=== PATIENT | male | born 1965 | race Caucasian/White ===

== ENCOUNTER 2019-05-02 06:13 | Day surgery (SDC) | payer OTHER ==
--- NOTE | 2019-04-29 10:46 | RAD REPORT ---
EXAM DESCRIPTION: RAD - Chest Pa And Lat (2 Views) - 04/29/2019 10:38 am CLINICAL HISTORY: preop Chest pain. COMPARISON: CHEST SINGLE VIEW dated 06/24/2015 FINDINGS: Emphysematous changes are present throughout the lungs. There is ill-defined apical pleura l thickening bilaterally. The heart is normal in size. No displaced fractures. IMPRESSION: COPD with apical pleural thickening bilaterally.
[2019-04-29 11:29] LABS: Absolute Lymphocytes (CBC) 2.8 K/uL (0.7-4.9); Basophils % 0.9 % (0-1.3); Eosinophils % 3.7 % (0-4.4); Hematocrit 44.5 % (39.6-49.0); Lymphocytes % 33.3 % (15.3-44.8); MPV 7.9 fL (7.6-11.3); Monocytes % 5.5 % (3.3-12.3); RBC Red Blood Cell Count 4.64 M/uL (4.33-5.43)
[2019-04-29 11:52] LABS: ALT/SGPT 27 U/L (12-78); AST/SGOT 23 U/L (15-37); Albumin 3.9 g/dL (3.4-5.0); Alkaline Phosphatase 71 U/L (45-117); Amylase Level 47 U/L (25-115); Bilirubin Direct < 0.1 mg/dL (0-0.2); Bilirubin Total 0.4 mg/dL (0.2-1.0)
[2019-04-29 12:04] LABS: Potassium 4.6 mmol/L (3.5-5.1)
--- NOTE | 2019-04-29 12:10 | EKG ---
Test Date: 2019-04-29 Test Time: 10:25:56 Oceanography Professor: PREO MEASUREMENT RESULTS: Intervals: Rate: 72 ME: 134 QRSD: 96 QT: 382 QTc: 418 [place]: P: 54 ME: 134 QRS: 62 T: 59 INTERPRETIVE STATEMENTS: Normal sinus rhythm Nonspecific ST abnormality Abnormal ECG Compared to ECG 06/24/2015 09:52:24 No significant changes Electronically Signed On 04-29-19 12:10:06 CDT by Niraj Amaral
--- OUTSIDE RECORDS SUMMARY | 2019-05-02 06:16 | XMS REPORT | Summary of Care ---
:1965 [address] [facility] Address [address] [address]- Encounter HQ Lydia(FIN) [id number] Date(s): 06/13/18 - 06/13/[address] [facility] [address] [facility] [address] [place], [place] [address]- [phone] Discharge Disposition: Home or Self Care Attending Physician: Marisol Shaikh MD Vital Signs Most recent to oldest [Reference Range]: 1 Height 175.26 cm (06/13/18 4:00 PM) Blood Pressure [90-140/60-90 mmHg] 126/77 mmHg (06/13/18 4:00 PM) Peripheral Pulse Rate [60-100 bpm] 82 bpm (06/13/18 4:00 PM) Weight 72.443 kg (06/13/18 4:00 PM) Body Mass Index 23.58 m2 (06/13/18 4:00 PM) Problem List Condition Effective Dates Status Health Status Informant Atypical facial pain(Confirmed) Active Medication monitoring Resolved encounter(Confirmed) Chronic GERD(Confirmed) Active Headache(Confirmed)1 01/07/07 Resolved Hypercholesteremia(Confirmed) Active Chronic prescription opiate Active use(Confirmed) Rosacea2 06/07/12 Active 1Data migrated from [employer] on 04/13/15.2Data migrated from [employer] on 04/13/15. Allergies, Adverse Reactions, Alerts Substance Reaction Severity Status sulfa drugs1 Active divalproex sodium2 Active 1Data migrated from [employer] on 06/10/15. Originally documented as SULFA. severe [id number] migrated from [employer] on 03/11/15. Originally documented as DEPAKOTE. made his nerve head pain become sharper Medications acetaminophen-hydrocodone 325 mg-10 mg oral tablet 1/2-1 tab, PO, Q8H, PRN Pain, # 45 tab, 0 Refill(s) Start Date: 06/13/18 Stop Date: 07/23/18 Status: Completed Results No data available for this section Immunizations No data available for this section Procedures Procedure Date Related Diagnosis Body Site Status Nerve operation1 10/28/07 Completed 1Decompression of trigeminal branches Social History Social History Type Response Employment/School Status: Employed. 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 Other: , is ill with chronic lung disease, has a trach. Two Children, 29 y.o dtr and her 3 kids live with pt and his , Son 34 lives close by. 2 kids.. Smoking Status Current every day smoker; Ready to change: No; Concerns about tobacco use in household: No; Exposure to Tobacco Smoke self; Cigarette Smoking Last 365 Days Yes; Reg Smoking Cessation Counseling Yes entered on: 10/24/18 Assessment and Plan No data available for this section
--- OUTSIDE RECORDS SUMMARY | 2019-05-02 06:16 | XMS REPORT | Continuity of Care Document ---
:1965 Author Organization Interface Problems Problem Status Onset Classification Date Comments Source Date Reported Rosacea<sup>2</sup> Active Problem 04/09/2019 Data 012 migrated Medical from [employer] on 04/13/15. Headache<sup>1</sup> Resolved Problem 04/09/2019 Data 007 migrated Medical from [employer] on 04/13/15. Atypical facial pain Active Problem 04/09/2019 Medical Group Medication monitoring Resolved Problem 04/09/2019 encounter Medical Group Chronic prescription Active Problem 04/09/2019 opiate use Medical Group Chronic GERD Active Problem 04/09/2019 Medical Group Hypercholesteremia Active Problem 04/09/2019 Medical Group Medications Medication Details Route Status Patient Ordering Order Source Instructions Provider Date Acetaminophen 325 MG 1/2-1 tab, Active / Hydrocodone PO, Q8H, 019 Medical Bitartrate 10 MG PRN Pain, # Group Oral Tablet 45 tab, 0 Refill(s) Acetaminophen 325 MG 1/2-1 tab, Active / Hydrocodone PO, Q8H, 019 Medical Bitartrate 10 MG PRN Pain, # Group Oral Tablet 45 tab, 0 Refill(s), other amitriptyline 50 mg =1 tab, PO, Active oral tablet Bedtime, # 019 Medical 30 tab, Group Refill(s) 1, Pharmacy: [facility] [id number] Acetaminophen 325 MG 1/2-1 tab, Active / Hydrocodone PO, Q8H, 019 Medical Bitartrate 10 MG PRN Pain, # Group Oral Tablet 45 tab, 0 Refill(s) Acetaminophen 300 MG 1 tab, PO, Active / Codeine Phosphate Q6H, PRN 019 Medical 60 MG Oral Tablet pain, # 45 Group [Tylenol with tab, 0 Codeine #4] Refill(s) Acetaminophen 325 MG 1/2-1 tab, No MH / Hydrocodone PO, Q8H, Longer 018 Medical Bitartrate 10 MG PRN Pain, # Active Group Oral Tablet 45 tab, 0 Refill(s), other Acetaminophen 325 MG 1/2-1 tab, No MH / Hydrocodone PO, Q8H, Longer 018 Medical Bitartrate 10 MG PRN Pain, # Active Group Oral Tablet 45 tab, 0 Refill(s), other Acetaminophen 325 MG 1/2-1 tab, No MH / Hydrocodone PO, Q8H, Longer 018 Medical Bitartrate 10 MG PRN Pain, # Active Group Oral Tablet 45 tab, 0 Refill(s), other amitriptyline 50 mg See No oral tablet Instruction Longer 018 Medical s, # 30 Active Group tab, Refill(s) 3, TAKE 1 TABLET BY MOUTH EVERY NIGHT AT BEDTIME, Pharmacy: [facility] [id number] Acetaminophen 325 MG 1/2-1 tab, No MH / Hydrocodone PO, Q8H, Longer 018 Medical Bitartrate 10 MG PRN Pain, # Active Group Oral Tablet 45 tab, 0 Refill(s) Acetaminophen 325 MG 1/2-1 tab, Active MH / Hydrocodone PO, Q8H, 018 Medical Bitartrate 10 MG PRN Pain, # Group Oral Tablet 45 tab, 0 Refill(s), other Acetaminophen 325 MG 1/2-1 tab, Active MH / Hydrocodone PO, Q8H, 018 Medical Bitartrate 10 MG PRN Pain, # Group Oral Tablet 45 tab, 0 Refill(s), other MethylPREDNISolone See Active Dose Pack 4 mg oral Instruction 018 Medical tablet s, PO, Group Daily, Use as directed on label., # 1 Pack, 0 Refill(s), Pharmacy: [facility] [id number] amitriptyline 50 mg See Active oral tablet Instruction 018 Medical s, # 30 Group tab, Refill(s) 5, TAKE 1 TABLET BY MOUTH EVERY NIGHT AT BEDTIME, Pharmacy: [facility] [id number] Acetaminophen 325 MG 1/2-1 tab, No MH / Hydrocodone PO, Q8H, Longer 018 Medical Bitartrate 10 MG PRN Pain, # Active Group Oral Tablet 45 tab, 0 Refill(s), other Acetaminophen 325 MG 1/2-1 tab, No MH / Hydrocodone PO, Q8H, Longer 018 Medical Bitartrate 10 MG PRN Pain, # Active Group Oral Tablet 45 tab, 0 Refill(s), other Acetaminophen 325 MG 1/2-1 tab, No MH / Hydrocodone PO, Q8H, Longer 018 Medical Bitartrate 10 MG PRN Pain, # Active Group Oral Tablet 45 tab, 0 Refill(s), given to patient Allergies, Adverse Reactions, Alerts Substance Category Reaction Severity Reaction Status Date Comments Source type Reported sulfa Assertion Drug Active Data drugs<sup>1< allergy 7 migrated Medical /sup> from [employer] on 06/10/15. Originally documented as SULFA. severe headaches divalproex Assertion Drug Active Data sodium<sup>2 allergy 7 migrated Medical </sup> from [employer] on 03/11/15. Originally documented as DEPAKOTE. made his nerve head pain become sharper Immunizations Immunization Date Given Site Status Last Updated Comments Source Results Order Results Value Reference Date Interpretation Comments Source Name Range Vital Signs Vital Sign Value Date Comments Source Weight 73.409 04/01/2019 Medical Group BMI Calculated 23.9 04/01/2019 Medical Group Height 175.26 cm 04/01/2019 Medical Group Heart Rate 90 04/01/2019 Medical Group Systolic (mm Hg) 122 04/01/2019 Medical Group Diastolic (mm Hg) 79 04/01/2019 Medical Group Height 175.26 cm 06/13/2018 Medical Group BMI Calculated 23.58 06/13/2018 Medical Group Weight 72.443 06/13/2018 Medical Group Systolic (mm Hg) 126 06/13/2018 Medical Group Diastolic (mm Hg) 77 06/13/2018 Medical Group Heart Rate 82 06/13/2018 Medical Group BMI Calculated 23.27 02/14/2018 Medical Group Weight 71.477 02/14/2018 Medical Group Height 175.26 cm 02/14/2018 Medical Group Heart Rate 84 02/14/2018 Medical Group Systolic (mm Hg) 136 02/14/2018 Medical Group Diastolic (mm Hg) 82 02/14/2018 Medical Group Weight 72.386 10/18/2017 Medical Group BMI Calculated 23.57 10/18/2017 Medical Group Height 175.26 cm 10/18/2017 Medical Group Systolic (mm Hg) 131 10/18/2017 Medical Group Diastolic (mm Hg) 73 10/18/2017 Medical Group Heart Rate 89 10/18/2017 Medical Group Encounters Location Location Encounter Encounter Reason Attending ADM DC Status Source Details Type Number For Provider Date Date Visit Outpatient [id number] [facility]YSIA 06/14 [facility] [place] [facility] [id number] MARISOL 10/27 [facility] [place] [facility] [id number] DIONYSIA 02/23 [facility] [place] [facility] [id number] DIONYSIA 04/05 [facility] [place] [facility] [id number] MARISOL 05/25 [facility] [place] [facility] [id number] NURSE 07/07 [facility] [place] Out[facility] [id number] DIONYSIA 09/28 [facility] [place] [facility] [id number] MARISOL 02/12 [facility] [place] [facility] [id number] MARISOL 06/14 [facility] [id number] MARISOL 10/18 [facility]2016 [facility] Outpatient [id number] Marisol 10/18 10/19 Neurology Neel /2016 [facility] Phone [id number] 11/19 11/21 [facility] [id number] 12/19 12/21 [facility] [id number] 01/17 01/19 [facility] [id number] 01/21 01/23 Neurology Message /2017 [facility] of [facility] Outpatient [id number] MARISOL 02/14 [facility] Outpatient [id number] Marisol 02/14 02/15 MH Neurology Neel /2017 [facility] Phone [id number] 03/19 03/21 MH Neurology Message /2017 [facility] Phone [id number] 04/18 04/20 MH Neurology Message /2017 [facility] Phone [id number] 05/16 05/18 MH Neurology Message /2017 [facility] Outpatient [id number] MARISOL 06/13 Active [facility]2017 [place] [facility] Outpatient [id number] Marisol 06/13 06/14 MH Neurology Neel /2017 [facility] Phone [id number] 07/22 07/24 MH Neurology Message /2017 [facility] Phone [id number] 07/23 07/25 MH Neurology Message /2017 [facility] Phone [id number] 08/15 08/17 Neurology Message /2017 [facility] Phone [id number] 09/18 09/20 MH Neurology Message /2017 [facility] Outpatient [id number] MARISOL 10/24 Active [facility] [place] [facility] Phone [id number] 12/19 12/21 MH Neurology Message /2018 [facility] Phone [id number] 01/06 01/08 MH Neurology Message /2018 [facility] Phone [id number] 01/13 01/15 MH Neurology Message /2018 [facility] Phone [id number] 01/13 01/15 MH Neurology Message /2018 [facility] Phone [id number] 01/20 01/22 MH Neurology Message /2018 [facility] Phone [id number] 01/20 01/22 Neurology Message /2018 [facility] Outpatient [id number] MARISOL 02/13 Active [facility] [place] [facility] Ambulatory [id number] Marisol 02/13 04 MH Neurology Pre-Reg Neel /2018 [facility] Phone [id number] 02/14 02/16 Neurology Message /2018 [facility] Phone [id number] 03/17 03/19 Neurology Message /2018 [facility] Phone [id number] 03/19 03/21 Neurology Message /2018 [facility] Outpatient [id number] Marisol 04/01 Active [facility] Outpatient [id number] Marisol 04/01 04/02 Neurology Neel /2018 [facility] Outpatient [id number] Marisol 08/07 Active [facility] [place] Procedures Procedure Code Date Perfomer Comments Source Nerve [id number] 10/28/2007 Decompression of Medical operation<sup>1 trigeminal branches Group </sup>
--- OUTSIDE RECORDS SUMMARY | 2019-05-02 06:17 | XMS REPORT | Summary of Care ---
:1965 Author Organization [facility] Neurology [facility] Address [address] [facility] [place] [address]- Encounter HQ Encntr_alias(FIN) [id number] Date(s): 09/18/18 - 09/19/18 [facility] [address] [place] [address]. [address] [place] [address]- [phone] Vital Signs No data available for this section Problem List Condition Effective Dates Status Health [...] on 06/10/15. Originally documented as SULFA. severe [id number] migrated from [employer] on 03/11/15. Originally documented as DEPAKOTE. made his nerve head pain become sharper Medications acetaminophen-hydrocodone 325 mg-10 mg oral tablet 1/2-1 tab, PO, Q8H, PRN Pain, # 45 tab, 0 Refill(s), other Start Date: 09/19/18 Stop Date: 10/24/18 Status: Discontinued Results No data available for this section Immunizations No data available for this section Procedures Procedure Date Related Diagnosis Body Site Status Nerve operation1 10/28/07 Completed 1Decompression of trigeminal branches Social History Social History Type Response Employment/School Status: Employed. 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 Other: , is ill with [...] Reg Smoking Cessation Counseling Yes entered on: 04/01/19 Assessment and Plan No data available for this section
--- OUTSIDE RECORDS SUMMARY | 2019-05-02 06:17 | XMS REPORT | Summary of Care ---
:1965 Author Organization [facility] Address [address] [address]- Encounter HQ Encntr_alias(FIN) [id number] Date(s): 01/06/19 - 01/07/19 [facility] [address] [facility] [address] [place], [place] [address]- [phone] Vital Signs No data available for this [...] on 06/10/15. Originally documented as SULFA. severe [id number] migrated from [employer] on 03/11/15. Originally documented as DEPAKOTE. made his nerve head pain become sharper Medications No data available for this section Results No data available for this section Immunizations No data available for this section Procedures Procedure Date Related Diagnosis Body Site Status Nerve operation1 10/28/07 Completed 1Decompression of trigeminal branches Social History Social History Type Response Employment/School Status: Employed. 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 Other: , is ill with [...]
--- OUTSIDE RECORDS SUMMARY | 2019-05-02 06:17 | XMS REPORT | Summary of Care ---
:1965 Author Organization [facility] Neurology [facility] Address [address] [facility] [place] [address]- Encounter HQ Encntr_alias(FIN) [id number] Date(s): 02/14/19 - 02/15/19 [facility] [address] [place] [address]. [address] [place] [address]- [phone] Vital Signs No data available for this [...] on 06/10/15. Originally documented as SULFA. severe [id number] migrated from [employer] on 03/11/15. 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 Other: , is ill with [...]
--- OUTSIDE RECORDS SUMMARY | 2019-05-02 06:17 | XMS REPORT | Summary of Care ---
:1965 Author Organization [facility] Neurology [facility] Address [address] [facility] [place] [address]- Encounter HQ Encntr_alihoney(FIN) [id number] Date(s): 02/13/19 - 02/13/19 [facility] [address] [place] [address]. [address] [place] [address]- [phone] Attending Physician: Marisol Shaikh MD Vital Signs No data available for this [...] on 06/10/15. Originally documented as SULFA. severe [id number] migrated from [employer] on 03/11/15. 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 Other: , is ill with [...]
--- OUTSIDE RECORDS SUMMARY | 2019-05-02 06:17 | XMS REPORT | Summary of Care ---
:1965 Author Organization [facility] Address [address] [address]- Encounter HQ Encntr_alias(FIN) [id number] Date(s): 03/19/18 - 03/20/18 [facility] [address] [address]- [phone] Vital Signs No data available for this section Problem List Condition Effective Dates Status Health Status Informant Atypical facial pain(Confirmed) Active Medication monitoring Resolved encounter(Confirmed) Headache(Confirmed)1 01/07/07 Resolved Chronic prescription opiate Active use(Confirmed) Rosacea2 06/07/12 Active 1Data migrated from [employer] on 04/13/15.2Data migrated from [employer] on 04/13/15. Allergies, Adverse Reactions, Alerts Substance Reaction Severity Status sulfa drugs1 Active divalproex sodium2 Active 1Data migrated from [employer] on 06/10/15. Originally documented as SULFA. severe [id number] migrated from [employer] on 03/11/15. Originally documented as DEPAKOTE. made his nerve head pain become sharper Medications acetaminophen-hydrocodone 325 mg-10 mg oral tablet 1/2-1 tab, PO, Q8H, PRN Pain, # 45 tab, 0 Refill(s), other Start Date: 03/21/18 Status: Ordered Results No data available for this section Immunizations No data available for this section Procedures Procedure Date Related Diagnosis Body Site Status Nerve operation1 10/28/07 Completed 1Decompression of trigeminal branches Social History Social History Type Response Employment/School Status: Employed. 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 Other: , is ill with chronic lung disease, has a trach. 2 Children, 26 y.o dtr and her 3 kids live with pt and his . Son lives close by. 2 kids.. Smoking Status Current every day smoker; Ready to change: No; Concerns about tobacco use in household: No; Exposure to Tobacco Smoke self; Cigarette Smoking Last 365 Days Yes; Reg Smoking Cessation Counseling Yes entered on: 02/14/18 Assessment and Plan No data available for this section
--- OUTSIDE RECORDS SUMMARY | 2019-05-02 06:17 | XMS REPORT | Summary of Care ---
:1965 Author Organization [facility] Neurology [facility] Address [address] [facility] [place] [address]- Encounter HQ Encntr_alias(FIN) [id number] Date(s): 07/22/18 - 07/23/18 [facility] [address] [place] [address]. [address] [place] [address]- [phone] Vital Signs No data available for this [...] on 06/10/15. Originally documented as SULFA. severe [id number] migrated from [employer] on 03/11/15. Originally documented as DEPAKOTE. made his nerve head pain become sharper Medications amitriptyline 50 mg oral tablet See Instructions, # 30 tab, Refill(s) 3, TAKE 1 TABLET BY MOUTH EVERY NIGHT AT BEDTIME, Pharmacy: [email or web address] [id number] Start Date: 07/22/18 Stop Date: 10/24/18 Status: Discontinued Results No data available for this section Immunizations No data available for this section Procedures Procedure Date Related Diagnosis Body Site Status Nerve operation1 10/28/07 Completed 1Decompression of trigeminal branches Social History Social History Type Response Employment/School Status: Employed. 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 Other: , is ill with [...]
--- OUTSIDE RECORDS SUMMARY | 2019-05-02 06:17 | XMS REPORT | Summary of Care ---
:1965 Author Organization [facility] Neurology [facility] Address [address] [facility] [place] [address]- Encounter HQ Encntr_alias(FIN) [id number] Date(s): 07/23/18 - 07/24/18 [facility] [address] [place] [address]. [address] [place] [address]- [phone] Vital Signs No data available for this [...] on 06/10/15. Originally documented as SULFA. severe [id number] migrated from [employer] on 03/11/15. Originally documented as DEPAKOTE. made his nerve head pain become sharper Medications acetaminophen-hydrocodone 325 mg-10 mg oral tablet 1/2-1 tab, PO, Q8H, PRN Pain, # 45 tab, 0 Refill(s), other Start Date: 07/23/18 Stop Date: 08/16/18 Status: Completed Results No data available for this section Immunizations No data available for this section Procedures Procedure Date Related Diagnosis Body Site Status Nerve operation1 10/28/07 Completed 1Decompression of trigeminal branches Social History Social History Type Response Employment/School Status: Employed. 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 Other: , is ill with [...]
--- OUTSIDE RECORDS SUMMARY | 2019-05-02 06:17 | XMS REPORT | Summary of Care ---
:1965 Author Organization [facility] Address [address] [address]- Encounter HQ Encntr_alias(FIN) [id number] Date(s): 11/19/17 - 11/20/17 [facility] [address] [facility] [address] [place], [place] [address]- [phone] Vital Signs No data available for this [...] on 06/10/15. Originally documented as SULFA. severe [id number] migrated from [employer] on 03/11/15. Originally documented as DEPAKOTE. made his nerve head pain become sharper Medications acetaminophen-hydrocodone 325 mg-10 mg oral tablet 1/2-1 tab, PO, Q8H, PRN Pain, # 45 tab, 0 Refill(s), given to patient Start Date: 11/22/17 Status: Ordered Results No data available for this section Immunizations No data available for this section Procedures Procedure Date Related Diagnosis Body Site Status Nerve operation1 10/28/07 Completed 1Decompression of trigeminal branches Social History Social History Type Response Employment/School Status: Employed. 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 Other: , is ill with chronic lung disease, has a trach. 2 Children, 26 y.o dtr and her 2 kids live with pt and his . Son lie close by. 4 grandchildren, all boys.. Smoking Status Current every day smoker; Ready to change: No; Concerns about tobacco use in household: No; Exposure to Tobacco Smoke self; Cigarette Smoking Last 365 Days Yes; Reg Smoking Cessation Counseling Yes entered on: 10/18/17 Assessment and Plan No data available for this section
--- OUTSIDE RECORDS SUMMARY | 2019-05-02 06:17 | XMS REPORT | Summary of Care ---
:1965 Author Organization [facility] Address [address] [address]- Encounter HQ Yvonne_halle(FIN) [id number] Date(s): 10/18/17 - 10/18/17 [facility] [address] [id number]- [phone] Discharge Disposition: Home or Self Care Attending Physician: Marisol Shaikh MD Vital Signs Most recent to oldest [Reference Range]: 1 Height 175.26 cm (10/18/17 4:18 PM) Blood Pressure [90-140/60-90 mmHg] 131/73 mmHg (10/18/17 4:18 PM) Peripheral Pulse Rate [60-100 bpm] 89 bpm (10/18/17 4:18 PM) Weight 72.386 kg (10/18/17 4:18 PM) Body Mass Index 23.57 m2 (10/18/17 4:18 PM) Problem List Condition Effective Dates Status [...] on 06/10/15. Originally documented as SULFA. severe [id number] migrated from [employer] on 03/11/15. Originally documented as DEPAKOTE. made his nerve head pain become sharper Medications No Known Medications Results No data available for this section Immunizations No data available for this section Procedures Procedure Date Related Diagnosis Body Site Nerve operation1 10/28/07 1Decompression of trigeminal branches Social History Social History Type Response Employment/School Status: Employed. 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
--- OUTSIDE RECORDS SUMMARY | 2019-05-02 06:17 | XMS REPORT | Summary of Care ---
:1965 Author Organization [facility] Neurology [facility] Address [address] [facility] [place] [address]- Encounter HQ Encntr_alias(FIN) [id number] Date(s): 03/17/19 - 03/18/19 [facility] [address] [place] [address]. [address] [place] [address]- [phone] Vital Signs No data available for this [...] on 06/10/15. Originally documented as SULFA. severe [id number] migrated from [employer] on 03/11/15. Originally documented as DEPAKOTE. made his nerve head pain become sharper Medications amitriptyline 50 mg oral tablet =1 tab, PO, Bedtime, # 30 tab, Refill(s) 1, Pharmacy: [facility] [id number] Start Date: 03/17/19 Status: Ordered Results No data available for this section Immunizations No data available for this section Procedures Procedure Date Related Diagnosis Body Site Status Nerve operation1 10/28/07 Completed 1Decompression of trigeminal branches Social History Social History Type Response Employment/School Status: Employed. 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 Other: , is ill with [...]
--- OUTSIDE RECORDS SUMMARY | 2019-05-02 06:17 | XMS REPORT | Summary of Care ---
:1965 Author Organization [facility] Address [address] [address]- Encounter HQ Encntr_alias(FIN) [id number] Date(s): 11/19/17 - 11/20/17 [facility] [address] [facility] [address] [place], [place] [address]- [phone] Vital Signs No data available for this [...] on 06/10/15. Originally documented as SULFA. severe [id number] migrated from [employer] on 03/11/15. Originally documented as DEPAKOTE. made his nerve head pain become sharper Medications acetaminophen-hydrocodone 325 mg-10 mg oral tablet 1/2-1 tab, PO, Q8H, PRN Pain, # 45 tab, 0 Refill(s), given to patient Start Date: 11/22/17 Stop Date: 12/20/17 Status: Completed Results No data available for this section Immunizations No data available for this section Procedures Procedure Date Related Diagnosis Body Site Status Nerve operation1 10/28/07 Completed 1Decompression of trigeminal branches Social History Social History Type Response Employment/School Status: Employed. 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 Other: , is ill with [...]
--- OUTSIDE RECORDS SUMMARY | 2019-05-02 06:17 | XMS REPORT | Summary of Care ---
:1965 Author Organization [facility] Address [address] [address]- Encounter HQ Encntr_alias(FIN) [id number] Date(s): 03/19/18 - 03/20/18 [facility] [address] [address]- [phone] Vital Signs No data available for this [...] on 06/10/15. Originally documented as SULFA. severe [id number] migrated from [employer] on 03/11/15. 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 Other: , is ill with [...]
--- OUTSIDE RECORDS SUMMARY | 2019-05-02 06:17 | XMS REPORT | Summary of Care ---
:1965 Author Organization [facility] Address [address] [address]- Encounter HQ Encntr_alias(FIN) [id number] Date(s): 01/13/19 - 01/14/19 [facility] [address] [facility] [address] [place], [place] [address]- [phone] Vital Signs No data available for this [...] on 06/10/15. Originally documented as SULFA. severe [id number] migrated from [employer] on 03/11/15. 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 Other: , is ill with [...]
--- OUTSIDE RECORDS SUMMARY | 2019-05-02 06:18 | XMS REPORT | Summary of Care ---
:1965 Author Organization [facility] Address [address] [address]- Encounter HQ Lydia(FIN) [id number] Date(s): 02/14/18 - 02/14/18 [facility] [address] [facility] [address] [place], [place] [address]- [phone] Discharge Disposition: Home or Self Care Attending Physician: Marisol Shaikh MD Vital Signs Most recent to oldest [Reference Range]: 1 Height 175.26 cm (02/14/18 3:41 PM) Blood Pressure [90-140/60-90 mmHg] 136/82 mmHg (02/14/18 3:41 PM) Peripheral Pulse Rate [60-100 bpm] 84 bpm (02/14/18 3:41 PM) Weight 71.477 kg (02/14/18 3:41 PM) Body Mass Index 23.27 m2 (02/14/18 3:41 PM) Problem List Condition Effective Dates Status Health Status Informant Atypical facial pain(Confirmed) Active Medication monitoring Resolved encounter(Confirmed) Headache(Confirmed)1 01/07/07 Resolved Chronic prescription opiate Active use(Confirmed) Rosacea2 06/07/12 Active 1Data migrated from [employer] on 04/13/15.2Data migrated from [employer] on 04/13/15. Allergies, Adverse Reactions, Alerts Substance Reaction Severity Status sulfa drugs1 Active divalproex sodium2 Active 1Data migrated from [employer] on 06/10/15. Originally documented as SULFA. severe [id number] migrated from [employer] on 03/11/15. Originally documented as DEPAKOTE. made his nerve head pain become sharper Medications MethylPREDNISolone Dose Pack 4 mg oral tablet See Instructions, PO, Daily, Use as directed on label., # 1 Pack, 0 Refill(s), Pharmacy: [email or web address] [id number] Start Date: 02/14/18 Stop Date: 02/20/18 Status: Ordered Results No data available for this section Immunizations No data available for this section Procedures Procedure Date Related Diagnosis Body Site Status Nerve operation1 10/28/07 Completed 1Decompression of trigeminal branches Social History Social History Type Response Employment/School Status: Employed. 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 Other: , is ill with [...]
--- OUTSIDE RECORDS SUMMARY | 2019-05-02 06:18 | XMS REPORT | Summary of Care ---
:1965 Author Organization [facility] Address [address] [address]- Encounter HQ Encntr_alias(FIN) [id number] Date(s): 01/17/18 - 01/18/18 [facility] [address] [facility] [address] [place], [place] [address]- [phone] Vital Signs No data available for this [...] on 06/10/15. Originally documented as SULFA. severe [id number] migrated from [employer] on 03/11/15. Originally documented as DEPAKOTE. made his nerve head pain become sharper Medications acetaminophen-hydrocodone 325 mg-10 mg oral tablet 1/2-1 tab, PO, Q8H, PRN Pain, # 45 tab, 0 Refill(s), other Start Date: 01/21/18 Stop Date: 03/21/18 Status: Completed Results No data available for this section Immunizations No data available for this section Procedures Procedure Date Related Diagnosis Body Site Status Nerve operation1 10/28/07 Completed 1Decompression of trigeminal branches Social History Social History Type Response Employment/School Status: Employed. 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 Other: , is ill with [...]
--- OUTSIDE RECORDS SUMMARY | 2019-05-02 06:18 | XMS REPORT | Summary of Care ---
:1965 Author Organization [facility] Address [address] [address]- Encounter HQ Encntr_alias(FIN) [id number] Date(s): 01/20/19 - 01/21/19 [facility] [address] [facility] [address] [place], [place] [address]- [phone] Vital Signs No data available for this [...] on 06/10/15. Originally documented as SULFA. severe [id number] migrated from [employer] on 03/11/15. 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 has been with the same [employer] since 2004.. Other: , is ill with [...]
--- OUTSIDE RECORDS SUMMARY | 2019-05-02 06:18 | XMS REPORT | Summary of Care ---
:1965 Author Organization [facility] Address [address] [facility] [address] [place] [address]- Encounter HQ Lydia(FIN) [id number] Date(s): 04/01/19 - 04/01/19 [facility] [address] [facility]. [address] [place] [address]- [phone] Discharge Disposition: Home or Self Care Attending Physician: Marisol Shaikh MD Vital Signs Most recent to oldest [Reference Range]: 1 Height 175.26 cm (04/01/19 3:45 PM) Blood Pressure [90-140/60-90 mmHg] 122/79 mmHg (04/01/19 3:45 PM) Peripheral Pulse Rate [60-100 bpm] 90 bpm (04/01/19 3:45 PM) Weight 73.409 kg (04/01/19 3:45 PM) Body Mass Index 23.9 m2 (04/01/19 3:45 PM) Problem List Condition Effective Dates Status [...] on 06/10/15. Originally documented as SULFA. severe [id number] migrated from [employer] on 03/11/15. Originally documented as DEPAKOTE. made his nerve head pain become sharper Medications acetaminophen-hydrocodone 325 mg-10 mg oral tablet 1/2-1 tab, PO, Q8H, PRN Pain, # 45 tab, 0 Refill(s) Start Date: 04/01/19 Status: Ordered Results No data available for this section Immunizations No data available for this section Procedures Procedure Date Related Diagnosis Body Site Status Nerve operation1 10/28/07 Completed 1Decompression of trigeminal branches Social History Social History Type Response Employment/School Status: Employed. 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 Other: , is ill [...]
--- OUTSIDE RECORDS SUMMARY | 2019-05-02 06:18 | XMS REPORT | Summary of Care ---
:1965 Author Organization [facility] Neurology [facility] Address [address] [facility] [place] [address]- Encounter HQ Encntr_alias(FIN) [id number] Date(s): 03/19/19 - 03/20/19 [facility] [address] [place] [address]. [address] [place] [address]- [phone] Vital Signs No data available for this [...] on 06/10/15. Originally documented as SULFA. severe [id number] migrated from [employer] on 03/11/15. Originally documented as DEPAKOTE. made his nerve head pain become sharper Medications acetaminophen-hydrocodone 325 mg-10 mg oral tablet 1/2-1 tab, PO, Q8H, PRN Pain, # 45 tab, 0 Refill(s), other Start Date: 03/21/19 Status: Ordered Results No data available for this section Immunizations No data available for this section Procedures Procedure Date Related Diagnosis Body Site Status Nerve operation1 10/28/07 Completed 1Decompression of trigeminal branches Social History Social History Type Response Employment/School Status: Employed. 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
--- OUTSIDE RECORDS SUMMARY | 2019-05-02 06:18 | XMS REPORT | Summary of Care ---
:1965 Author Organization [facility] Address [address] [address]- Encounter HQ Encntr_alias(FIN) [id number] Date(s): 05/16/18 - 05/17/18 [facility] [address] [address]- [phone] Vital Signs No data available for this [...] on 06/10/15. Originally documented as SULFA. severe [id number] migrated from [employer] on 03/11/15. Originally documented as DEPAKOTE. made his nerve head pain become sharper Medications acetaminophen-hydrocodone 325 mg-10 mg oral tablet 1/2-1 tab, PO, Q8H, PRN Pain, # 45 tab, 0 Refill(s), other Start Date: 05/17/18 Status: Ordered Results No data available for this section Immunizations No data available for this section Procedures Procedure Date Related Diagnosis Body Site Status Nerve operation1 10/28/07 Completed 1Decompression of trigeminal branches Social History Social History Type Response Employment/School Status: Employed. 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 Other: , is ill with [...]
--- OUTSIDE RECORDS SUMMARY | 2019-05-02 06:18 | XMS REPORT | Summary of Care ---
:1965 Author Organization [facility] Address [address] [address]- Encounter HQ Encntr_alias(FIN) [id number] Date(s): 01/17/18 - 01/18/18 [facility] [address] [facility] [address] [place], [place] [address]- [phone] Vital Signs No data available for this [...] on 06/10/15. Originally documented as SULFA. severe [id number] migrated from [employer] on 03/11/15. 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 Other: , is ill with [...]
--- OUTSIDE RECORDS SUMMARY | 2019-05-02 06:18 | XMS REPORT | Summary of Care ---
:1965 Author Organization [facility] Address [address] [address]- Encounter HQ Encntr_alias(FIN) [id number] Date(s): 01/13/19 - 01/14/19 [facility] [address] [facility] [address] [place], [place] [address]- [phone] Vital Signs No data available for this [...] on 06/10/15. Originally documented as SULFA. severe [id number] migrated from [employer] on 03/11/15. Originally documented as DEPAKOTE. made his nerve head pain become sharper Medications Tylenol with Codeine #4 oral tablet 1 tab, PO, Q6H, PRN pain, # 45 tab, 0 Refill(s) Start Date: 01/13/19 Status: Ordered Results No data available for this section Immunizations No data available for this section Procedures Procedure Date Related Diagnosis Body Site Status Nerve operation1 10/28/07 Completed 1Decompression of trigeminal branches Social History Social History Type Response Employment/School Status: Employed. 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 Other: , is ill with [...]
--- OUTSIDE RECORDS SUMMARY | 2019-05-02 06:18 | XMS REPORT | Summary of Care ---
:1965 Author Organization [facility] Address [address] [address]- Encounter HQ Encntr_alias(FIN) [id number] Date(s): 07/22/18 - 07/23/18 [facility] [address] [facility] [address] [place], [place] [address]- [phone] Vital Signs No data available for this [...] on 06/10/15. Originally documented as SULFA. severe [id number] migrated from [employer] on 03/11/15. Originally documented as DEPAKOTE. made his nerve head pain become sharper Medications amitriptyline 50 mg oral tablet See Instructions, # 30 tab, Refill(s) 3, TAKE 1 TABLET BY MOUTH EVERY NIGHT AT BEDTIME, Pharmacy: [facility] [id number] Start Date: 07/22/18 Stop Date: 10/24/18 Status: Discontinued Results No data available for this section Immunizations No data available for this section Procedures Procedure Date Related Diagnosis Body Site Status Nerve operation1 10/28/07 Completed 1Decompression of trigeminal branches Social History Social History Type Response Employment/School Status: Employed. 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 has been with the [...]
--- OUTSIDE RECORDS SUMMARY | 2019-05-02 06:18 | XMS REPORT | Summary of Care ---
:1965 Author Organization [facility] Address [address] [address]- Encounter HQ Encntr_alias(FIN) [id number] Date(s): 01/21/18 - 01/22/18 [facility] [address] [facility] [address] [place], [place] [address]- [phone] Vital Signs No data available for this [...] on 06/10/15. Originally documented as SULFA. severe [id number] migrated from [employer] on 03/11/15. Originally documented as DEPAKOTE. made his nerve head pain become sharper Medications amitriptyline 50 mg oral tablet See Instructions, # 30 tab, Refill(s) 5, TAKE 1 TABLET BY MOUTH EVERY NIGHT AT BEDTIME, Pharmacy: [facility] [id number] Start Date: 01/21/18 Status: Ordered Results No data available for this section Immunizations No data available for this section Procedures Procedure Date Related Diagnosis Body Site Status Nerve operation1 10/28/07 Completed 1Decompression of trigeminal branches Social History Social History Type Response Employment/School Status: Employed. 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 has been with the same [employer] since 2004.. Other: , is ill with [...]
--- OUTSIDE RECORDS SUMMARY | 2019-05-02 06:18 | XMS REPORT | Summary of Care ---
:1965 Author Organization [facility] Address [address] [address]- Encounter HQ Encntr_alias(FIN) [id number] Date(s): 12/19/17 - 12/20/17 [facility] [address] [facility] [address] [place], [place] [address]- [phone] Vital Signs No data available for this [...] on 06/10/15. Originally documented as SULFA. severe [id number] migrated from [employer] on 03/11/15. Originally documented as DEPAKOTE. made his nerve head pain become sharper Medications acetaminophen-hydrocodone 325 mg-10 mg oral tablet 1/2-1 tab, PO, Q8H, PRN Pain, # 45 tab, 0 Refill(s), other Start Date: 12/20/17 Stop Date: 01/21/18 Status: Completed Results No data available for this section Immunizations No data available for this section Procedures Procedure Date Related Diagnosis Body Site Status Nerve operation1 10/28/07 Completed 1Decompression of trigeminal branches Social History Social History Type Response Employment/School Status: Employed. 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 Other: , is ill with [...]
--- OUTSIDE RECORDS SUMMARY | 2019-05-02 06:18 | XMS REPORT | Summary of Care ---
:1965 Author Organization [facility] Address [address] [address]- Encounter HQ Encntr_alias(FIN) [id number] Date(s): 01/20/19 - 01/21/19 [facility] [address] [facility] [place] [address] [place], [place] [address]- [phone] Vital Signs No data available for this [...] on 06/10/15. Originally documented as SULFA. severe [id number] migrated from [employer] on 03/11/15. Originally documented as DEPAKOTE. made his nerve head pain become sharper Medications acetaminophen-hydrocodone 325 mg-10 mg oral tablet 1/2-1 tab, PO, Q8H, PRN Pain, # 45 tab, 0 Refill(s) Start Date: 01/20/19 Status: Ordered Results No data available for this section Immunizations No data available for this section Procedures Procedure Date Related Diagnosis Body Site Status Nerve operation1 10/28/07 Completed 1Decompression of trigeminal branches Social History Social History Type Response Employment/School Status: Employed. 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 Other: , is ill with [...]
--- OUTSIDE RECORDS SUMMARY | 2019-05-02 06:18 | XMS REPORT | Summary of Care ---
:1965 Author Organization [facility] Address [address] [address]- Encounter HQ Encntr_alias(FIN) [id number] Date(s): 04/18/18 - 04/19/18 [facility] [address] [address]- [phone] Vital Signs No data available for this [...] on 06/10/15. Originally documented as SULFA. severe [id number] migrated from [employer] on 03/11/15. 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 Other: , is ill with [...]
--- OUTSIDE RECORDS SUMMARY | 2019-05-02 06:19 | XMS REPORT | Summary of Care ---
:1965 Author Organization [facility] Neurology [facility] Address [address] [facility] [address] [place] [address]- Encounter HQ Encntr_alias(FIN) [id number] Date(s): 08/15/18 - 08/16/18 [facility] [address] [place] [address]. [address] [place] [address] [phone] Vital Signs No data available for this [...] on 06/10/15. Originally documented as SULFA. severe [id number] migrated from [employer] on 03/11/15. Originally documented as DEPAKOTE. made his nerve head pain become sharper Medications acetaminophen-hydrocodone 325 mg-10 mg oral tablet 1/2-1 tab, PO, Q8H, PRN Pain, # 45 tab, 0 Refill(s), other Start Date: 08/16/18 Stop Date: 09/19/18 Status: Completed Results No data available for this section Immunizations No data available for this section Procedures Procedure Date Related Diagnosis Body Site Status Nerve operation1 10/28/07 Completed 1Decompression of trigeminal branches Social History Social History Type Response Employment/School Status: Employed. 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 Other: , is ill with [...]
--- OUTSIDE RECORDS SUMMARY | 2019-05-02 06:19 | XMS REPORT ---
:1965 Author Organization [facility] Address [address] [place] [address] Dr. Mancilla [address] [place] [address] Care Team Providers Name Role Phone Unavailable Unavailable Unavailable Problems This patient has no known problems. Allergies, Adverse Reactions, Alerts This patient has no known allergies or adverse reactions. Medications This patient has no known medications.
--- OUTSIDE RECORDS SUMMARY | 2019-05-02 06:19 | XMS REPORT | Summary of Care ---
:1965 Author Organization [facility] Address [address] [address]- Encounter HQ Encntr_alias(FIN) [id number] Date(s): 12/19/18 - 12/20/18 [facility] [address] [facility] [address] [place], [place] [address]- [phone] Vital Signs No data available for this [...] on 06/10/15. Originally documented as SULFA. severe [id number] migrated from [employer] on 03/11/15. 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 Other: , is ill with [...]
[2019-05-02] MEDS ORDERED: CEFOXITIN/SWI 1gm 1 GM/10 ML SYR ONE (06:31)
[2019-05-02] MEDS ORDERED: Ringers Lactate 1,000 ML IV ONE ×2 (06:31→08:12)
[2019-05-02] MEDS ORDERED: FENTANYL CITR 250 MCG/5 ML ONE (07:12)
[2019-05-02] MEDS ORDERED: LIDOCAINE 2% MPF 5 ML VIAL ONE (07:12)
[2019-05-02] MEDS ORDERED: PROPOFOL 200 MG/20 ML VIAL IV ONE (07:12)
[2019-05-02] MEDS ORDERED: MIDAZOLAM HCL 2 MG/2 ML INJ ONE (07:12)
[2019-05-02] MEDS ORDERED: ROCURONIUM 50 MG/5 ML VIAL IV ONE (07:12)
[2019-05-02] MEDS ORDERED: DEXAMETHASONE 10 MG/ML VIAL ONE (07:12)
[2019-05-02] MEDS ORDERED: GLYCOPYRROLATE 0.2 MG/ML SYR ONE (08:02)
[2019-05-02] MEDS ORDERED: EPHEDRINE SULF 50 MG/ML VIAL ONE (08:04)
[2019-05-02] MEDS ORDERED: ATROPINE SULF 1 MG/10 ML SYR IV ONE (08:06)
[2019-05-02] MEDS ORDERED: KETOROLAC 30 MG/ML INJ ONE (08:42)
[2019-05-02] MEDS ORDERED: ONDANSETRON HCL 40 MG/20 ML VIAL ONE (09:10)
[2019-05-02] MEDS: HYDROMORPHONE HCL 1 MG/ML INJ ONE ×3 (09:17→09:25)
[2019-05-02] MEDS ORDERED: HYDROMORPHONE HCL 1 MG/ML INJ ONE (09:48)
--- NOTE | 2019-05-02 10:00 | OP ---
Date of Procedure: 05/02/2019 Surgeon: Reji Schaffer MD Pump Service Supervisor: OLIVER Mims. Preoperative Diagnosis: Chronic cholecystitis. Postoperative Diagnosis: Chronic cholecystitis with extensive adhesion. Procedure Performed: Laparoscopic cholecystectomy and lysis of adhesion. Estimated Blood Loss: Minimal. Specimen: Gallbladder. Findings: As above. Anesthesia: General. Complications: None. The patient tolerated the procedure in stable condition, taken to the Recovery in good general condit ion. Procedure In Detail: The patient was brought to the OR and placed in supine position. General anest hesia was begun. The patient was prepped and draped in the sterile fashion. Marcaine 0.5% was infil trated locally. A 15-blade was used to make a 1 cm supraumbilical midline incision. Subcutaneous ti ssue divided. The fascia was identified and divided. A #1 Vicryl stay suture was placed. Peritonea l cavity was entered with sharp and blunt dissection. A 12 mm trocar was placed into the peritoneal cavity under direct vision. Pneumoperitoneum was established, and then three 5 mm trocars placed, 1 in the epigastrium just to the right of midline, and 2 in the right subcostal region. Laparoscopy re vealed chronic inflammation of the gallbladder with extensive adhesion in the right upper quadrant, t aken down with sharp and blunt dissection, bleeding controlled with cautery and then all the adhesion s omental in nature were removed from the gallbladder and the liver and then the fundus retracted sup eriorly. Infundibulum was identified and retracted inferolaterally. Cystic duct and cystic artery w ere clearly identified and with blunt dissection, clips placed, both structures were divided. Cauter y was used to remove the gallbladder from the liver bed. Bleeding in the liver bed was controlled wi th cautery. The gallbladder was retrieved through the umbilicus via an EndoCatch bag. Right upper q uadrant was irrigated. Effluent was clear. No evidence of bleeding or bile leakage appreciated. Alejandre bsequently, all trocars were removed under direct visio and stay sutures were tied to each other to r eapproximate the fascial defect. Subcutaneous wounds irrigated. Bleeding controlled with cautery. A 3-0 chromic used to approximate the subcutaneous tissue and close the skin. Sterile dressing was a pplied. The patient was awakened and taken to Recovery in good general condition. Discharge Note: The patient will go to day surgery and home when stable. Disposition: Home. Condition: Stable. Discharge Instructions: Resume home medications and diet. Activity as tolerated. No heavy lifting. Remove outer dressing in 2 days. Shower. Keep wound clean and dry. Keep Steri-Strips on at all t imes. Tylenol No. 3, 1 tablet p.o. q.4 p.r.n. pain and follow up in my office in a week. Call for a ppointment. /MODL Voice ID: [id number] Report ID: [id number]
[2019-05-02] MEDS ORDERED: HYDROCODONE/APAP 7.5/325 MG TAB ONE (10:18)
== END 2019-05-02 10:56 | disposition home or self-care (01) ==
LOC: OR 06:13
PROVIDERS: ATTEND Surgery
PROC: 0FT44ZZ Resection of Gallbladder, Percutaneous Endoscopic Approach (ICD-10-PCS; principal; 2019-05-02 07:30)
DX: K80.12 Calculus of gallbladder with acute and chronic cholecystitis without obstruction (principal); K66.0 Peritoneal adhesions (postprocedural) (postinfection); K21.9 Gastro-esophageal reflux disease without esophagitis; M48.02 Spinal stenosis, cervical region; J44.9 Chronic obstructive pulmonary disease, unspecified; Z79.899 Other long term (current) drug therapy
CPT/HCPCS: 36415; 71046; 80048; 80076; 82150; 85025; 88304; 93005; J1100; J1170; J2250; J2405; J2704; J3010